=== PATIENT | female | born 1995 | race Caucasian/White ===

== ENCOUNTER → 2017-10-08 | Outpatient (CLI) | payer BC ==
[2016-01-01 11:45] VITALS: BP 106/56
[~2017-10-08] MED LIST: PROVERA10 MG PO
[2017-10-08 10:10] LABS: CLUE CELLS NOT OBSERVED (Not Observd)
== END ==
LOC: LAB 09:09
PROVIDERS: Family Medicine
DX: Z01.419 Encounter for gynecological examination (general) (routine) without abnormal findings (principal)
CPT/HCPCS: Q0111